=== PATIENT | female | born 1945 | race Caucasian/White ===

== ENCOUNTER → 2019-08-29 | Outpatient (CLI) | payer BC | END | disposition home or self-care (01) | LOC: SHCH 13:48 | PROVIDERS: ATTEND Internal Medicine Cardiovascular Disease | DX: R00.2 Palpitations (principal) | CPT/HCPCS: 93306 ==

== ENCOUNTER → 2021-05-24 | Outpatient (CLI) | payer BC | END | disposition home or self-care (01) | LOC: SHCH 10:57 | PROVIDERS: ATTEND Internal Medicine Cardiovascular Disease | DX: I35.8 Other nonrheumatic aortic valve disorders (principal); I11.9 Hypertensive heart disease without heart failure; E78.5 Hyperlipidemia, unspecified | CPT/HCPCS: 93306 ==

== ENCOUNTER 2021-06-04 13:00 | Inpatient (IN) | payer BC, MEDICARE ==
[~2021-06-04] VITALS: Ht 175.3 cm; Wt 85.7 kg
[2021-06-04 10:39] LABS: BASOPHILS % (AUTO) 0.3 % (0.0-5.0); EOSINOPHILS % (AUTO) 1.5 % (0.0-8.0); HEMATOCRIT 41.1 % (36-48); LYMPHOCYTES % (AUTO) 29.2 % (21.0-51.0); MEAN CORPUSCULAR HEMOGLOBIN 29.5 pg (27.0-33.0); MEAN CORPUSCULAR HGB CONC 32.1 g/dL (32.0-36.0); MEAN CORPUSCULAR VOLUME 91.7 fL (79-99); MONOCYTES % (AUTO) 8.4 % (3.0-13.0); NEUTROPHILS % (AUTO) 60.1 % (40.0-77.0); PLATELET COUNT (AUTO) 252 K/uL (130-400); RED BLOOD CELL COUNT(AUTO) 4.48 MIL/uL (4.00-5.50); RED CELL DISTRIBUTION WIDTH 13.5 % (11.0-15.5); WHITE BLOOD COUNT (AUTO) 6.2 K/uL (4.8-10.8)
[2021-06-04 10:57] LABS: INR 0.96 (0.85-1.15); PROTHROMBIN TIME 10.5 SEC (9.6-11.6)
[2021-06-04 10:59] LABS: APPEARANCE,URINE CLEAR (CLEAR); BILIRUBIN,URINE NEGATIVE (NEGATIVE); COLOR,URINE YELLOW (YELLOW); CREATININE 0.7 mg/dL (0.5-1.5); GLUCOSE, URINE (UA) NEGATIVE (NEGATIVE); KETONES,URINE NEGATIVE (NEGATIVE); LEUKOCYTE ESTERASE ,URINE NEGATIVE (NEGATIVE); NITRATE,URINE NEGATIVE (NEGATIVE); OCCULT BLOOD,URINE NEGATIVE (NEGATIVE); POTASSIUM 3.9 mmol/L (3.5-5.1); PROTEIN,URINE NEGATIVE (NEGATIVE); UROBILINOGEN,URINE 0.2 mg/dL (0.2-1.0)
[2021-06-04] MEDS ORDERED: LOSA50TA64 PO (14:50)
[2021-06-04] MEDS ORDERED: BACI1CAP6 PO (14:50)
[2021-06-04] MEDS ORDERED: ATOR10TA69 PO (14:50)
[2021-06-04] MEDS ORDERED: LEVO75CA5 PO (14:50)
[2021-06-04] MEDS ORDERED: [UNRECOGNIZED DRUG - MIXTURE] PO (14:50)
[2021-06-04] MEDS ORDERED: GLUC-29 PO (14:50)
[2021-06-04] MEDS ORDERED: [UNRECOGNIZED DRUG - OTHER] PO (14:50)
[2021-06-04] MEDS ORDERED: MULT-1367 PO (14:50)
[2021-06-04] MEDS ORDERED: LEVO50CA4 PO (14:50)
[2021-06-04] MEDS ORDERED: VITAD50000 PO (14:50)
[2021-06-04] MEDS ORDERED: ANTI1CAP5 PO (14:50)
[2021-06-04] MEDS ORDERED: BIOT10005 PO (14:50)
[2021-06-07] VITALS (26 sets, daily range): BP systolic 116–150; BP diastolic 53–80
[2021-06-07] MEDS ORDERED: CEFAZOLIN SODIUM 1 GM VIAL ONE (08:06)
[2021-06-07] MEDS ORDERED: LACTATED RINGERS 1000ML 1,000 ML IV ONE (08:06)
[2021-06-07] MEDS: CEFAZOLIN SODIUM 3 GM VIAL IV SCH ×4 (08:50→21:44)
[2021-06-07] MEDS ORDERED: CELECOXIB 200 MG CAP ONE (09:13)
[2021-06-07] MEDS ORDERED: ACETAMINOPHEN 500 MG TABLET ONE (09:13)
[2021-06-07] MEDS ORDERED: KETOROLAC 15MG/ML VIAL (15MG/ML) ONE (09:14)
[2021-06-07] MEDS ORDERED: ONDANSETRON 4MG INJ ONE (10:20)
[2021-06-07] MEDS ORDERED: ROCURONIUM 10MG/1ML SYR 10 MG/ML ML ONE ×2 (10:20→12:35)
[2021-06-07] MEDS ORDERED: GLYCOPYRROLATE 1 MG/5 ML SYRINGE ONE ×2 (10:20→13:54)
[2021-06-07] MEDS ORDERED: LIDOCAINE PF 100MG/5ML (2%) SYRINGE 5ML ONE (10:21)
[2021-06-07] MEDS ORDERED: FENTANYL CITRATE PF 50 MCG/1 ML 2ML VIAL ONE ×2 (10:21→14:57)
[2021-06-07] MEDS ORDERED: PROPOFOL 10 MG/ML 20ML VIAL IV ONE (10:25)
[2021-06-07] MEDS ORDERED: ROPIVACAINE 0.5% 5MG/ML 30ML IJ ONE (10:26)
[2021-06-07] MEDS ORDERED: FAMOTIDINE 20MG VIAL IV ONE (10:31)
[2021-06-07] MEDS ORDERED: TRANEXAMIC ACID 1000MG/10ML IV ONE (11:52)
[2021-06-07] MEDS ORDERED: CEFAZOLIN SODIUM 1 GM VIAL IRRIG ONE (12:07)
[2021-06-07] MEDS ORDERED: EPHEDRINE SULFATE 50 MG/ML AMPULE ONE (12:20)
[2021-06-07] MEDS ORDERED: LIDOCAINE HCL-MPF 1% 2ML VIAL IV PRN (13:30)
[2021-06-07] MEDS ORDERED: POTASSIUM CHLORIDE 10% ELIXIR 20 MEQ/15 ML UDCUP PO PRN (13:30)
[2021-06-07] MEDS ORDERED: POTASSIUM CHLORIDE 20MEQ/100ML 100 ML IV PRN (13:30)
[2021-06-07] MEDS ORDERED: KETOROLAC 15MG/ML VIAL (15MG/ML) IV PRN (13:30)
[2021-06-07] MEDS ORDERED: TEMAZEPAM 15 MG CAPSULE PO PRN (13:30)
[2021-06-07] MEDS ORDERED: DiphenhydrAMINE HCL 50 MG/ML VIAL IVP PRN (13:30)
[2021-06-07] MEDS: 0.9%NACL 1000ML 1,000 ML IV SCH ×2 (13:30→18:58)
[2021-06-07] MEDS ORDERED: FERROUS FUMARATE 324 MG TABLET PO PRN (13:30)
[2021-06-07] MEDS: ACETAMINOPHEN 500 MG TABLET PO SCH ×2 (13:30→19:49)
[2021-06-07] MEDS ORDERED: NEOSTIGMINE 5MG/5ML SYR IV ONE (13:54)
[2021-06-07] MEDS ORDERED: TRANEXAMIC ACID 1000MG/10ML ONE (14:14)
[2021-06-07] MEDS ORDERED: MEPERIDINE-PF 25 MG/ML SYG ONE (14:14)
[2021-06-07] MEDS: ONDANSETRON 4MG INJ IVP PRN ×2 (14:32→15:00)
[2021-06-07] MEDS ORDERED: METOCLOPRAMIDE 10 MG/2 ML VIAL ONE (15:37)
[2021-06-07] MEDS ORDERED: NON-FORMULARY MEDICATION 1 EACH (Levothyroxine Sodium (Levothyroxine) 50 MCG) PO SCH (18:30)
[2021-06-07] MEDS ORDERED: NON-FORMULARY MEDICATION 1 EACH (Levothyroxine Sodium (Levothyroxine) 75 MCG) PO SCH (18:30)
[2021-06-07] MEDS: CEFAZOLIN SODIUM 1 GM VIAL IVP SCH (18:42)
[2021-06-07] MEDS: OXYCODONE HCL 5 MG TAB PO PRN (18:47)
[2021-06-07] MEDS ORDERED: [UNRECOGNIZED DRUG - REMARK] MISC SCH (19:00)
[2021-06-07] MEDS: ASPIRIN 81 MG EC TAB PO SCH (19:47)
[2021-06-07] MEDS: FAMOTIDINE 20MG TAB PO SCH (19:47)
[2021-06-07] MEDS: CELECOXIB 200 MG CAP PO SCH (19:48)
[2021-06-07] MEDS: PREGABALIN 25 MG CAP PO SCH (19:48)
[2021-06-07] MEDS: TRAMADOL HCL 50 MG TABLET PO PRN (21:47)
[2021-06-08] VITALS: BP 118/60
[2021-06-08] MEDS: CEFAZOLIN SODIUM 1 GM VIAL IVP SCH (01:27)
[2021-06-08] MEDS: OXYCODONE HCL 5 MG TAB PO PRN ×3 (01:41→16:17)
[2021-06-08 04:00] VITALS: BP 120/64
[2021-06-08 04:14] LABS: HEMATOCRIT 32.3 % (36-48); MEAN CORPUSCULAR HEMOGLOBIN 29.2 pg (27.0-33.0); MEAN CORPUSCULAR HGB CONC 32.8 g/dL (32.0-36.0); RED BLOOD CELL COUNT(AUTO) 3.63 MIL/uL (4.00-5.50); RED CELL DISTRIBUTION WIDTH 13.5 % (11.0-15.5); WHITE BLOOD COUNT (AUTO) 11.3 K/uL (4.8-10.8)
[2021-06-08 04:28] LABS: CREATININE 0.7 mg/dL (0.5-1.5); POTASSIUM 3.8 mmol/L (3.5-5.1)
[2021-06-08] MEDS: KCL 20 MEQ ERTAB PO PRN ×2 (06:20→11:07)
[2021-06-08] MEDS: CALCIUM CARB 500MG PO PRN ×2 (06:20→11:07)
[2021-06-08] MEDS: LEVOTHYROXINE 50 MCG TABLET PO SCH (06:21)
[2021-06-08] MEDS: ACETAMINOPHEN 500 MG TABLET PO SCH ×3 (06:21→20:35)
[2021-06-08 07:10] VITALS: BP 118/62
[2021-06-08] MEDS: ATORVASTATIN 10 MG TABLET PO SCH (08:49)
[2021-06-08] MEDS: PREGABALIN 25 MG CAP PO SCH ×2 (08:49→20:34)
[2021-06-08] MEDS: LOSARTAN 50 MG TABLET PO SCH (08:49)
[2021-06-08] MEDS: ASPIRIN 81 MG EC TAB PO SCH ×2 (08:49→20:34)
[2021-06-08] MEDS: POLYETHYLENE GLYCOL 3350 17 GM POWD.PACK PO SCH (08:49)
[2021-06-08] MEDS: CELECOXIB 200 MG CAP PO SCH ×2 (08:50→20:34)
[2021-06-08] MEDS: FAMOTIDINE 20MG TAB PO SCH ×2 (08:50→20:34)
[2021-06-08] MEDS: **HM**(Cholecalciferol (Vitamin D3) 50,000 UNITS) PO SCH (09:00)
[2021-06-08] MEDS: BENZOCAINE/MENTH/CETYLPYRD CL 1 EACH LOZENGE MM PRN ×3 (11:07→22:04)
[2021-06-08 11:10] VITALS: BP 104/55
[2021-06-08] MEDS: TRAMADOL HCL 50 MG TABLET PO PRN (13:26)
[2021-06-08 15:00] VITALS: BP 139/71
[2021-06-08] MEDS: CEFAZOLIN SODIUM 3 GM VIAL IV SCH (18:01)
[2021-06-08 20:00] VITALS: BP 141/72
[2021-06-09] VITALS: BP 143/72
[2021-06-09] MEDS: OXYCODONE HCL 5 MG TAB PO PRN ×3 (02:02→19:45)
[2021-06-09 04:00] VITALS: BP 147/74
[2021-06-09] MEDS: LEVOTHYROXINE 50 MCG TABLET PO SCH (05:29)
[2021-06-09] MEDS: ACETAMINOPHEN 500 MG TABLET PO SCH ×2 (05:29→13:59)
[2021-06-09 07:00] VITALS: BP 142/80
[2021-06-09] MEDS: **HM**(Cholecalciferol (Vitamin D3) 50,000 UNITS) PO SCH (08:17)
[2021-06-09] MEDS: POLYETHYLENE GLYCOL 3350 17 GM POWD.PACK PO SCH (09:17)
[2021-06-09] MEDS: ATORVASTATIN 10 MG TABLET PO SCH (09:18)
[2021-06-09] MEDS: ASPIRIN 81 MG EC TAB PO SCH (09:18)
[2021-06-09] MEDS: PREGABALIN 25 MG CAP PO SCH (09:18)
[2021-06-09] MEDS: LOSARTAN 50 MG TABLET PO SCH (09:18)
[2021-06-09] MEDS: CELECOXIB 200 MG CAP PO SCH (09:18)
[2021-06-09] MEDS: FAMOTIDINE 20MG TAB PO SCH (09:18)
[2021-06-09 11:00] VITALS: BP 145/78
[2021-06-09 15:20] VITALS: BP 150/79
[2021-06-10] MEDS ORDERED: BISACODYL 10 MG SUPP.RECT RC PRN (13:30)
[2021-06-13] MEDS ORDERED: LEVOTHYROXINE 75 MCG TABLET PO SCH (06:30)
== END 2021-06-09 20:20 | DRG 470 ==
LOC: EDSTATUS 13:00 → DAHIP 06-07 07:51 → 4AH 06-07 15:39
PROVIDERS: ADMIT Orthopaedic Surgery; ATTEND Orthopaedic Surgery
PROC: 3E0T3BZ Introduction of Anesthetic Agent into Peripheral Nerves and Plexi, Percutaneous Approach (ICD-10-PCS; 2021-06-07)
PROC: 0SRC0J9 Replacement of Right Knee Joint with Synthetic Substitute, Cemented, Open Approach (ICD-10-PCS; principal; 2021-06-07 11:19)
DX: M17.11 Unilateral primary osteoarthritis, right knee (principal); E78.5 Hyperlipidemia, unspecified; E89.0 Postprocedural hypothyroidism; I10 Essential (primary) hypertension; R33.9 Retention of urine, unspecified; D64.9 Anemia, unspecified; Z90.710 Acquired absence of both cervix and uterus; Z85.850 Personal history of malignant neoplasm of thyroid
CPT/HCPCS: 36415; 80048; 81003; 85025; 85027; 85610; 87088; 87635; 87641; 97039; G0378; J0690; J1885; J2001; J2175; J2405; J2704; J2710; J2765; J2795; J3010; J3490; J7030; J7120

== ENCOUNTER → 2023-10-12 | Outpatient (CLI) | payer MEDICARE, OTHER ==
[~2023-10-12] MED LIST: ANTI1CAP5 PO; ATOR10TA69 PO; BACI1CAP6 PO; BIOT10005 PO; GLUC-29 PO; IOHEXOL 350 MG/ML 100ML INFUS..BTL IV ONE; LEVO50CA4 PO; LEVO75CA5 PO; LOSA50TA64 PO; METOPROLOL TARTRATE 1 MG/ML 5ML VIAL IV ONE; MULT-1367 PO; VITAD50000 PO; [UNRECOGNIZED DRUG - MIXTURE] PO; [UNRECOGNIZED DRUG - OTHER] PO
== END | disposition home or self-care (01) ==
LOC: RAH 09:02
PROVIDERS: ATTEND Internal Medicine Cardiovascular Disease
DX: I10 Essential (primary) hypertension (principal); M47.815 Spondylosis without myelopathy or radiculopathy, thoracolumbar region; K76.89 Other specified diseases of liver
CPT/HCPCS: 75574; J3490; Q9967

== ENCOUNTER → 2023-10-25 | Outpatient (CLI) | payer MEDICARE, OTHER ==
[~2023-10-25] MED LIST changes: -IOHEXOL 350 MG/ML 100ML INFUS..BTL IV ONE; -METOPROLOL TARTRATE 1 MG/ML 5ML VIAL IV ONE
== END | disposition home or self-care (01) ==
LOC: SHCH 08:05
PROVIDERS: ATTEND Internal Medicine Cardiovascular Disease
DX: R07.9 Chest pain, unspecified (principal)
CPT/HCPCS: 93306

== ENCOUNTER → 2024-05-10 | Outpatient (CLI) | payer MEDICARE, OTHER ==
[2024-05-10] MEDS: REGADENOSON 0.4 MG/5 ML PF SYG IVP ONE (13:39)
== END | disposition home or self-care (01) ==
LOC: SHCH 08:06
PROVIDERS: ATTEND Internal Medicine Cardiovascular Disease
DX: R55 Syncope and collapse (principal)
CPT/HCPCS: 78452; 93017; J2785; A9500 ×2

== ENCOUNTER → 2024-05-13 | Outpatient (CLI) | payer MEDICARE, OTHER ==
--- NOTE | 2024-05-14 07:27 | HMCSR ---
APPROVED REPORT Laterality: Right Indications R09.89 VELOCITY AND DOPPLER WAVEFORM ANALYSIS SAP BPC DEVELOPER (R) 110.0cm/sec, Biphasic, Prof Fem Art. (R) 63.5cm/sec, Biphasic, Fem Art Prox. (R) 106.5cm/sec, Biphasic, Fem Art Mid. (R) 87.9cm/sec, Biphasic, Fem Art Dist (R) 95.1cm/sec, Biphasic, Pop Art(AK) (R) 82.5cm/sec, Biphasic, Pop Art (Fossa)(R) 82.5cm/sec, Biphasic, Pop Art(BK) (R) 60.7cm/sec, Biphasic, FEED WEIGHER Dist. (R) 21.6cm/sec, Monophasic, Per Art Dist. (R) 49.3cm/sec, Biphasic, ERIKA Dist. (R) 117.3cm/sec, Biphasic, Technologist Impression Diffuse atherosclerosis throughout the right lower extremity. Monophasic waveform seen in the RT FEED WEIGHER Distal. Conclusion Diffuse atherosclerosis throughout the right lower extremity. Monophasic waveform seen in the RT FEED WEIGHER Distal. Conclusion Diffuse atherosclerosis throughout the right lower extremity. Monophasic waveform seen in the RT FEED WEIGHER Distal.
== END | disposition home or self-care (01) ==
LOC: SHCH 09:56
PROVIDERS: ATTEND Internal Medicine Cardiovascular Disease
DX: I70.291 Other atherosclerosis of native arteries of extremities, right leg (principal); R09.89 Other specified symptoms and signs involving the circulatory and respiratory systems
CPT/HCPCS: 93926